=== PATIENT | male | born 1995 | race Caucasian/White ===

== ENCOUNTER 2017-09-24 16:38 | Emergency (ER) | payer OTHER ==
[2017-09-24] MEDS ORDERED: DIPHTH,PERTUSS(ACELL),TET 0.5 ML DISP.SYRIN IM ONE (16:43)
--- NOTE | 2017-09-24 16:54 | PDOC ---
History of Present Illness - General History Source: Patient, Parent(s) Exam Limitations: No Limitations - History of Present Illness Initial Comments: 09/24/17 17:14 22 y/o M with a PMHx of autism, self-injurious behavior presents to the ED with swelling and erythema at the base of the left wrist. Patient bit his left hand 2 weeks ago, and mother noticed redness and swelling today. Mother states he was playing with the cat yesterday so the cat may have scratched the scab that formed from the previous bite. Mother put bacitracin on the wound, but reports pus in the surrounding area. Denies fever, chills, nausea, vomiting, diarrhea. <Mahsa Bobo - Last Filed: 09/24/17 17:18> - General History Source: Patient <MarkKin tong - Last Filed: 09/24/17 17:41> - General Chief Complaint: Wound Infection Stated Complaint: LEFT HAND WOUND INFECTION Time Seen by Provider: 09/24/17 16:43 Past History <Mahsa Bobo - Last Filed: 09/24/17 17:18> - Immunization History Td Vaccination: Yes TDAP Vaccination: Yes Immunization Up to Date: Yes - Suicide/Smoking/Psychosocial Hx Smoking Status: No Smoking History: Never smoked Number of Cigarettes Smoked Daily: 0 <Kin Lucero - Last Filed: 09/24/17 17:41> - Past Medical History Allergies/Adverse Reactions: Allergies Allergy/AdvReac Type Severity Reaction Status Date / Time No Known Allergies Allergy Verified 09/24/17 16:40 Home Medications: Ambulatory Orders Lamotrigine [Lamictal] 50 mg PO DAILY 07/25/12 Cephalexin [Keflex] 500 mg PO TID #20 capsule 09/24/17 Sulfamethoxazole/Trimethoprim [Bactrim Ds -] 1 tab PO BID #14 tablet 09/24/17 Review of Systems - Review of Systems Constitutional: No: Chills, Fever HEENTM: No: Symptoms Reported Respiratory: No: Cough, Shortness of Breath, Wheezing Cardiac (ROS): No: Chest Pain, Palpitations, Syncope ABD/GI: No: Diarrhea, Nausea, Vomiting : No: Symptoms Reported Musculoskeletal: No: Symptoms Reported Integumentary: Yes: Erythema (surrounding the left wrist wound), Other ( swelling around left wrist wound) All Other Systems: Reviewed and Negative <Mahsa Bobo - Last Filed: 09/24/17 17:18> *Physical Exam - Vital Signs Last Vital Signs Temp Pulse Resp BP Pulse Ox 97.4 F L 79 18 129/80 99 09/24/17 16:39 09/24/17 16:39 09/24/17 16:39 09/24/17 16:39 09/24/17 16:39 - Physical Exam General Appearance: Yes: Appropriately Dressed. No: Apparent Distress Respiratory/Chest: positive: Lungs Clear, Normal Breath Sounds Cardiovascular: positive: Regular Rhythm, Regular Rate Gastrointestinal/Abdominal: positive: Normal Bowel Sounds, Soft. negative: Tenderness Musculoskeletal: positive: Normal Inspection Extremity: positive: Normal Capillary Refill, Tender (on surrounding area of left wrist wound) Integumentary: positive: Warm, Erythema (surrounding the wound), Other (open wound, with pus on left wrist.) Neurologic: positive: Alert <Mahsa Bobo - Last Filed: 09/24/17 17:18> *DC/Admit/Observation/Transfer - Attestations Scribe Attestion: 09/24/17 17:18 Documentation prepared by Mahsa Bobo, acting as hospital medical biller for Kin Lucero MD. <Mahsa Bobo - Last Filed: 09/24/17 17:18> - Discharge Dispostion Admit: No <Kin Lucero - Last Filed: 09/24/17 17:41> Diagnosis at time of Disposition: Cellulitis of hand - Discharge Dispostion Disposition: HOME Condition at time of disposition: Stable - Patient Instructions Printed Discharge Instructions: DI for Wound Infection Additional Instructions: CLEAN AND DRY FOLLOW UP WITH pmd OR RETURN HERE FOR WOUND CHECK IN 2-3 DAYS
[2017-09-24 17:03] VITALS: BP 129/80; PULSE 79; TEMP 97.4; BMI 18.9
[2017-09-24] MEDS ORDERED: SULFAMETHOXAZOLE/TRIMETHOPRIM 800MG/160MG D.S. TABLET PO ONE (17:30)
[2017-09-24] MEDS ORDERED: CEPHALEXIN MONOHYDRATE 500 MG CAPSULE (UD) PO ONE (17:30)
[2017-09-24] MEDS ORDERED: CEPHALEXIN MONOHYDRATE 500 MG CAPSULE (UD) ONE (17:40)
[2017-09-24] MEDS ORDERED: SULFAMETHOXAZOLE/TRIMETHOPRIM 800MG/160MG D.S. TABLET ONE (17:40)
== END 2017-09-24 17:55 | disposition home or self-care (01) ==
LOC: FER 16:38
PROC: 3E0234Z Introduction of Serum, Toxoid and Vaccine into Muscle, Percutaneous Approach (ICD-10-PCS; principal; 2017-09-24)
DX: L03.114 Cellulitis of left upper limb (principal); F84.0 Autistic disorder
CPT/HCPCS: 87070; 87205; 90471; 90715; 99281-25

== ENCOUNTER 2021-04-03 19:15 | Emergency (ER) | payer OTHER ==
[2021-04-03 19:27] VITALS: BP 138/85; PULSE 98; TEMP 97.8; BMI 26.4
[2021-04-03] MEDS ORDERED: CEPHALEXIN MONOHYDRATE 500 MG CAPSULE (UD) PO ONE (21:08)
[2021-04-03] MEDS ORDERED: CEPHALEXIN MONOHYDRATE 500 MG CAPSULE (UD) ONE (21:12)
== END 2021-04-03 21:17 | disposition home or self-care (01) ==
LOC: FER 19:15
DX: L03.115 Cellulitis of right lower limb (principal); S01.81XA Laceration without foreign body of other part of head, initial encounter
CPT/HCPCS: 73630-TC-RT-FY; 99284-25

== ENCOUNTER 2021-11-01 09:47 | Emergency (ER) | payer OTHER ==
[2021-11-01 10:06] VITALS: BP 136/77; PULSE 88; TEMP 97.9; BMI 26.4
== END 2021-11-01 11:13 | disposition home or self-care (01) ==
LOC: FER 09:47
PROC: 0HQ1XZZ Repair Face Skin, External Approach (ICD-10-PCS; principal; 2021-11-01)
DX: S01.81XA Laceration without foreign body of other part of head, initial encounter (principal); W22.8XXA Striking against or struck by other objects, initial encounter
CPT/HCPCS: 99282-25

== ENCOUNTER 2022-05-10 17:58 | Emergency (ER) | payer OTHER ==
[2022-05-10] MEDS ORDERED: LIDOCAINE 1%/EPI 1:100000 (20 ML MULTI DOSE VIAL) INF ONE (18:13)
[2022-05-10] MEDS ORDERED: LIDOCAINE HCL/EPINEPHRINE/PF 20 ML VIAL ONE (18:15)
[2022-05-10 18:20] VITALS: BP 123/63; PULSE 77; TEMP 98; BMI 23.1
== END 2022-05-10 18:57 | disposition home or self-care (01) ==
LOC: FER 17:58
PROC: 0HQ0XZZ Repair Scalp Skin, External Approach (ICD-10-PCS; principal; 2022-05-10)
DX: S01.01XA Laceration without foreign body of scalp, initial encounter (principal); W22.8XXA Striking against or struck by other objects, initial encounter
CPT/HCPCS: 99282-25

== ENCOUNTER 2022-05-17 15:53 | Emergency (ER) | payer OTHER ==
[2022-05-17 16:00] VITALS: BP 130/87; PULSE 99; TEMP 97.7; BMI 27.1
== END 2022-05-17 16:21 | disposition home or self-care (01) ==
LOC: FER 15:53
DX: Z48.02 Encounter for removal of sutures (principal)
CPT/HCPCS: 99281-25

== ENCOUNTER 2022-05-25 15:35 | Emergency (ER) | payer OTHER ==
[2022-05-25 16:22] VITALS: BP 129/83; PULSE 77; TEMP 98; BMI 32.5
[2022-05-25] MEDS ORDERED: ACETAMINOPHEN 500 MG TABLET (FP) PO ONE (16:59)
[2022-05-25] MEDS ORDERED: ACETAMINOPHEN 500 MG TABLET (FP) ONE (17:05)
[2022-05-25] MEDS ORDERED: LIDOCAINE 2.5%/PRILOCAINE 2.5% (5 Gram/TUBE) TP ONE (17:09)
== END 2022-05-25 17:55 | disposition home or self-care (01) ==
LOC: FER 15:35
DX: S01.01XA Laceration without foreign body of scalp, initial encounter (principal)
CPT/HCPCS: 70450-TC; 99284-25

== ENCOUNTER 2022-06-04 16:15 | Emergency (ER) | payer OTHER ==
[2022-06-04 16:24] VITALS: BP 120/70; PULSE 72; TEMP 98; BMI 27.1
== END 2022-06-04 16:57 | disposition home or self-care (01) ==
LOC: FER 16:15
DX: Z48.02 Encounter for removal of sutures (principal)
CPT/HCPCS: 99281-25

== ENCOUNTER 2022-09-17 15:54 | Emergency (ER) | payer OTHER ==
[2022-09-17] MEDS ORDERED: LIDOCAINE HCL/EPINEPHRINE/PF 20 ML VIAL ONE (16:23)
[2022-09-17 16:44] VITALS: BP 129/84; PULSE 87; RESP 20; TEMP 97.7; BMI 22.4
== END 2022-09-17 17:10 | disposition home or self-care (01) ==
LOC: FER 15:54
PROC: 0HQ0XZZ Repair Scalp Skin, External Approach (ICD-10-PCS; principal; 2022-09-17)
DX: S01.01XA Laceration without foreign body of scalp, initial encounter (principal); F84.0 Autistic disorder; W22.8XXA Striking against or struck by other objects, initial encounter
CPT/HCPCS: 99282-25

== ENCOUNTER 2022-09-25 16:23 | Emergency (ER) | payer OTHER ==
[2022-09-25 16:29] VITALS: BP 122/69; PULSE 79; RESP 20; TEMP 98; BMI 27.1
== END 2022-09-25 16:49 | disposition home or self-care (01) ==
LOC: FER 16:23
DX: Z48.02 Encounter for removal of sutures (principal)
CPT/HCPCS: 99281-25

== ENCOUNTER 2023-01-11 19:17 | Emergency (ER) | payer OTHER ==
[2023-01-11 19:31] VITALS: BP 133/87; PULSE 80; RESP 18; BMI 26.9
[2023-01-11] MEDS ORDERED: LIDOCAINE 2.5%/PRILOCAINE 2.5% (5 Gram/TUBE) TP ONE (19:32)
[2023-01-11] MEDS ORDERED: LIDOCAINE 2.5%/PRILOCAINE 2.5% 30 GRAM TUBE TP ONE (19:35)
[2023-01-11] MEDS ORDERED: CEPHALEXIN MONOHYDRATE 500 MG CAPSULE (UD) PO ONE (19:40)
[2023-01-11] MEDS ORDERED: CEPHALEXIN MONOHYDRATE 500 MG CAPSULE (UD) ONE (19:47)
[2023-01-11] MEDS ORDERED: LIDOCAINE 2%/EPINEPHRINE 1:100000 (50 ML MD VIAL) INF ONE (20:16)
[2023-01-11] MEDS ORDERED: LIDO 2%/EPI 1:200000 PRESRVFRE (20 ML SDVIAL) ONE (20:17)
== END 2023-01-11 20:40 | disposition home or self-care (01) ==
LOC: FER 19:17
PROC: 0HQ0XZZ Repair Scalp Skin, External Approach (ICD-10-PCS; principal; 2023-01-11)
DX: S01.01XA Laceration without foreign body of scalp, initial encounter (principal); W22.8XXA Striking against or struck by other objects, initial encounter
CPT/HCPCS: 99283-25

== ENCOUNTER 2023-01-18 18:53 | Emergency (ER) | payer OTHER ==
[2023-01-18 19:12] VITALS: BP 131/71; PULSE 89; RESP 20; TEMP 98; BMI 27.1
== END 2023-01-18 19:34 | disposition home or self-care (01) ==
LOC: FER 18:53
DX: Z48.02 Encounter for removal of sutures (principal)
CPT/HCPCS: 99281-25

== ENCOUNTER 2023-02-17 18:40 | Emergency (ER) | payer OTHER ==
[2023-02-17 19:00] VITALS: BP 124/67; PULSE 89; RESP 18; TEMP 98; BMI 27.1
== END 2023-02-17 19:50 | disposition home or self-care (01) ==
LOC: FER 18:40
PROC: 0HQ0XZZ Repair Scalp Skin, External Approach (ICD-10-PCS; principal; 2023-02-17)
DX: S01.01XA Laceration without foreign body of scalp, initial encounter (principal); W22.8XXA Striking against or struck by other objects, initial encounter; Y92.090 Kitchen in other non-institutional residence as the place of occurrence of the external cause
CPT/HCPCS: 99282-25

== ENCOUNTER 2023-06-08 13:45 | Emergency (ER) | payer OTHER ==
[2023-06-08 14:03] VITALS: BP 128/87; PULSE 82; RESP 18; TEMP 98.2; BMI 27.1
== END 2023-06-08 15:05 | disposition home or self-care (01) ==
LOC: FER 13:45
DX: S01.01XA Laceration without foreign body of scalp, initial encounter (principal); W22.8XXA Striking against or struck by other objects, initial encounter; Y93.89 Activity, other specified; Y92.9 Unspecified place or not applicable
CPT/HCPCS: 99282-25